=== PATIENT | male | born 1985 | race Caucasian/White ===

== ENCOUNTER 2022-05-24 13:26 | Emergency (ER) | payer OTHER, SELFPAY ==
[2022-05-24 13:34] VITALS: BP 128/85; PULSE 57; RESP 16; TEMP 36.7; O2SAT 100
--- NOTE | 2022-05-24 14:28 | ED.GENADUL_ITS ---
Discharge Plan Disposition Patient Disposition: HOME Condition: Improving Discharge Details Clinical Impression: Laceration of hand, left Primary Care Provider: Kati,Local ED Provider: Domenico Spence Home Meds and New Rx's Prescriptions: Continued propranolol 20 mg Tablet 20 mg PO DAILY Discharge Instructions Instructions: Laceration (ED) Additional Instructions: Return for fever, redness, or any other acute concerns. Sutures to be removed in 1 week Medical Decision Making 36-year-old male who lacerated his left hand on the dorsum with a boxing promoter knife at home. His tetanus is up-to-date. He was anesthetized, irrigated, cleansed and evaluated in a bloodless field without evidence of foreign body. The wound was repaired with 2 interrupted nylon sutures. He is stable and improved, appropriate for discharged home HPI General Mode of arrival: ambulatory . Date/Time Provider Initiated Documentation: 05/24/22 13:37 . Limitations to Documentation: no limitations . Information obtained by: patient . History of Present Illness 36 year old M presents to the emergency department with the chief complaint of Left hand laceration, described as mild, Quality is described as dull and constant, and is localized to the left and upper extremity. Patient reports no radiation. Patient started experiencing this minute(s) and it has been constant. No relieving factors improve symptom(s), No exacerbating factors reported . Patient notes no other symptoms.. Patient did receive the following treatments prior to arrival, none Related Data Home Medications Medication Instructions Recorded Confirmed propranolol 20 mg tablet 20 mg PO DAILY 05/24/22 05/24/22 Allergies Allergy/AdvReac Type Severity Reaction Status Date / Time No Known Allergies Allergy Unverified 05/24/22 13:36 General Stated Complaint: Laceration MARK: 4 Review of Systems Narrative: Tetanus up-to-date, no motor weakness or numbness PFSH All Active Problems (Updated 05/24/22 @ 14:32 by Domenico Spence MD) Laceration of hand, left (Acute) Social History Smoking/Tobacco Use Status: Never Smoking risk assessment performed?: Yes Alcohol Intake: current Alcohol Intake frequency: holidays/special occasions only Alcohol type: beer Drug use: Never Substance use type: does not use Do you feel safe at home: Yes Exam Narrative Exam Narrative: GEN: awake, alert, oriented 3. Pleasant, well groomed, interactive. EXT: Full ROM, no edema, no rash. Left hand dorsum with 1 cm puncture wound overlying the first metacarpal. Distal motor and sensory testing is unremarkable/within normal limits Neuro: Grossly normal neurologic exam, conversant, interactive. Psych: Speech fluent, thoughts congruent, affect normal Course Vital Signs Vital signs: Vital Signs Temperature 36.7 C 05/24/22 13:34 Pulse 57 L 05/24/22 13:34 Respiratory Rate 16 05/24/22 13:34 Blood Pressure 128/85 05/24/22 13:34 Pulse Oximetry 100 05/24/22 13:34 Temperature 36.7 C 05/24/22 13:34 Temperature Source Tympanic 05/24/22 13:34 Pulse 57 L 05/24/22 13:34 Respiratory Rate 16 05/24/22 13:34 Respiratory Effort Non-Labored 05/24/22 13:38 Blood Pressure 128/85 05/24/22 13:34 Blood Pressure Position Sitting 05/24/22 13:34 Pulse Oximetry 100 05/24/22 13:34 Oxygen Delivery Method Room Air 05/24/22 13:34 Oxygen Flow Rate 0 05/24/22 13:34 Pain Level 0 05/24/22 13:34 Procedures Laceration Laceration 1: Site: hand Side (If applicable): right Size (cm): 1.5 Description: linear Depth: simple, single layer Local Anesthetic: Lidocaine 1% Amount of anesthesia used (mL): 1.5 Pre-repair: wound explored and deep structures intact Skin layer closed with: nylon Size (cm): 4-0 Number of sutures: 2 Technique: simple, interrupted PAWSS Have you Been Recently Intoxicated or Drunk Within the Last 30 days?: No Have you Ever Experienced Previous Episodes of Alcohol Withdrawal?: No Have you ever Experienced Withdrawal Seizures?: No Have you ever Experienced Delirium Tremens(DT)s?: No Have you ever undergone Alcohol Rehabilitation Treatment (i.e, inpt ot outpatient treatment programs)?: No Have you ever Experienced Blackouts?: No Have you ever Combined Alcohol with other Downers within the last 90 days?: No Have you ever Combined Alcohol with any other Substance of Abuse during the last 90 days?: No Positive Blood Alcohol level on Presentation? [PCS.BAL]: No Evidence of Increased Autonomic Activity (i.e. HR>120, tremor, sweating, agitation, nausea)?: No Result: 0
== END 2022-05-24 14:25 | disposition home or self-care (01) ==
PROVIDERS: Emergency Provider Emergency Medicine
DX: S61.412A Laceration without foreign body of left hand, initial encounter (principal); W26.0XXA Contact with knife, initial encounter; Y92.009 Unspecified place in unspecified non-institutional (private) residence as the place of occurrence of the external cause
CPT/HCPCS: 12001; 99281; 99282

== ENCOUNTER 2023-03-08 02:43 | Outpatient (CLI) | payer OTHER, SELFPAY ==
--- NOTE | 2023-03-08 10:04 | DI.RAD_ITS ---
Exam(s) XR ARTHRITIS SERIES EXAM: XR ARTHRITIS SERIES CLINICAL HISTORY: B/L DIP pain, polyarthritis, M13.0. TECHNIQUE: 2D digital imaging was performed. Two views of both hands. COMPARISON: No exams were available for comparison FINDINGS: BONES: Bones are normally mineralized. No acute fracture is present. No bony destructive lesion is s een. JOINTS: No dislocation present. No joint space narrowing. SOFT TISSUE: Normal. IMPRESSION: Unremarkable radiographs of bilateral hands. DATA REPOSITORY: RADIATION DOSE DELIVERED:
--- NOTE | 2023-03-08 10:05 | DI.RAD_ITS ---
Exam(s) XR SHOULDER LT COMPLETE 2+V EXAM: XR SHOULDER LT COMPLETE 2+V CLINICAL HISTORY: Unprovoked deep pain, polyarthritis, M13.0. TECHNIQUE: 2D digital imaging was performed. Three views. COMPARISON: No exams were available for comparison FINDINGS: BONES: No acute fracture is present. No bony destructive lesion is seen. JOINTS: No dislocation present. No visible degenerative changes. SOFT TISSUE: Normal. IMPRESSION: Unremarkable radiographs of the left shoulder. DATA REPOSITORY: RADIATION DOSE DELIVERED:
== END 2023-03-08 03:03 ==
LOC: DI 02:43
PROVIDERS: PCP Family Medicine; Visit Provider Family Medicine
DX: M13.0 Polyarthritis, unspecified (principal)
CPT/HCPCS: 73030; 73120

== ENCOUNTER 2023-03-12 02:23 | Outpatient (CLI) | payer OTHER, SELFPAY ==
[2023-03-12 14:27] LABS: ALT 39 U/L (16-63); AST 24 U/L (15-37); Albumin 4.3 g/dL (3.4-5.0); Alkaline Phosphatase 56 U/L (46-116); BUN 16 mg/dL (7-18); Bilirubin, Total 0.7 mg/dL (0.2-1.0); Calcium 8.8 mg/dL (8.5-10.1); Chloride 104 mmol/L (98-107); Estimated GFR 100.66 (mL/min/1.73m2); Glucose 82 mg/dL (74-106); Potassium 4.4 mmol/L (3.5-5.1); Sodium 140 mmol/L (136-145); Total Protein 8.1 g/dL (6.4-8.2)
[2023-03-12 14:46] LABS: Calculated LDL 134 mg/dL (<100); Cholesterol 201 mg/dL (<200); HDL Cholesterol 61 mg/dL (40-60); Triglyceride 34 mg/dL (<150)
[2023-03-15 09:55] LABS: Cyclic Citrullinated Peptide <2.5 U/mL (<5.0)
== END 2023-03-12 02:24 | disposition home or self-care (01) ==
LOC: LBO 02:24
PROVIDERS: PCP Family Medicine; Visit Provider Family Medicine
DX: M13.0 Polyarthritis, unspecified (principal); I48.91 Unspecified atrial fibrillation
CPT/HCPCS: 36415; 80053; 80061; 86200

== ENCOUNTER 2023-06-03 16:22 | Outpatient (REF) | payer OTHER, SELFPAY ==
[2023-06-03 21:49] LABS: Abs Immature Grans 0.01 10^3/uL (0.0-0.06); Absolute Basophil Count 0.09 10^3/uL (0.0-0.2); Absolute Eosinophil Count 0.11 10^3/uL (0.0-0.7); Absolute Lymphocyte Count 1.69 10^3/uL (1.2-3.4); Absolute Monocyte Count 0.59 10^3/uL (0.1-0.8); Absolute Neutrophil Count 3.24 10^3/uL (1.2-6.7); Basophils % 1.6; Eosinophils % 1.9; HCT 45.6 % (40.0-50.0); HGB 15.5 g/dL (13.5-17.5); Immature Grans % 0.2; Lymphocytes % 29.5; MCH 30.5 pg (27.0-33.0); MCV 90 fL (80-95); MPV 10.9 fL (8.0-11.0); Monocytes % 10.3; Neutrophils % 56.5; Platelet Count 214 10^3/uL (130-400); RBC 5.08 10^6/uL (4.36-5.78); RDW 11.9 % (11.8-14.1); RDW-SD 38.7 fL; WBC 5.73 10^3/uL (4.4-10.8)
[2023-06-07 10:36] LABS: Lyme Ab w Rflx to Lyme Confirm Negative (Negative)
[2023-06-07 15:51] LABS: Measles (Rubeola), IgM Negative (Negative)
[2023-06-07 22:16] LABS: Anaplasma phagocytophilum Negative (Negative); B. miyamotoi PCR Negative (Negative); Babesia divergens/MO-1 Negative (Negative); Babesia duncani Negative (Negative); Babesia microti Negative (Negative); Ehrlichia chaffeensis Negative (Negative); Ehrlichia ewingii/canis Negative (Negative); Ehrlichia muris eauclairensis Negative (Negative)
== END 2023-06-03 16:23 | disposition home or self-care (01) ==
LOC: LBN 16:22
PROVIDERS: PCP Family Medicine; Visit Provider Physician Assistant
DX: R21 Rash and other nonspecific skin eruption (principal); R53.81 Other malaise; R51.9 Headache, unspecified; R53.83 Other fatigue
CPT/HCPCS: 86765; 87798; 85025; 86618

== ENCOUNTER 2023-12-22 05:06 | Outpatient (CLI) | payer OTHER, SELFPAY ==
[2023-12-22 16:14] LABS: ALT 37 U/L (16-63); AST 23 U/L (15-37); Albumin 4.4 g/dL (3.4-5.0); Alkaline Phosphatase 68 U/L (46-116); Bilirubin, Direct 0.2 mg/dL (0.0-0.2); Bilirubin, Total 0.7 mg/dL (0.2-1.0); Total Protein 8.6 g/dL (6.4-8.2)
== END 2023-12-22 05:07 | disposition home or self-care (01) ==
LOC: LBO 05:06
PROVIDERS: PCP Family Medicine; Referring Provider Family Medicine; Visit Provider Family Medicine
DX: B35.1 Tinea unguium (principal); Z79.899 Other long term (current) drug therapy
CPT/HCPCS: 36415; 80076

== ENCOUNTER 2024-01-20 08:15 | Outpatient (CLI) | payer OTHER, SELFPAY ==
[2024-01-20 16:17] LABS: ALT 31 U/L (16-63); AST 17 U/L (15-37); Albumin 3.9 g/dL (3.4-5.0); Alkaline Phosphatase 58 U/L (46-116); Bilirubin, Direct 0.1 mg/dL (0.0-0.2); Bilirubin, Total 0.4 mg/dL (0.2-1.0); Total Protein 7.7 g/dL (6.4-8.2)
== END 2024-01-20 08:16 | disposition home or self-care (01) ==
PROVIDERS: PCP Family Medicine; Visit Provider Family Medicine
DX: B35.1 Tinea unguium (principal)
CPT/HCPCS: 36415; 80076

== ENCOUNTER 2024-01-25 08:36 | Outpatient (CLI) | payer OTHER, SELFPAY ==
--- NOTE | 2024-01-25 08:30 | RT.EKG_ITS ---
APPROVED REPORT Exam: Resting ECG Reason for Exam: palpitations Patient Location: O HR:69 bpm ECG Measurements Heart Rate 69 AXIS SD 155 P 72 QRSd 102 QRS 62 QT 388 T 41 QTc 416 Conclusion Sinus rhythm...normal P axis, V-rate 50- 99 Baseline wander in lead(s) II,III,aVL,aVF Normal Electrocardiogram
== END 2024-01-25 08:37 | disposition home or self-care (01) ==
LOC: DI.CARD 08:37
PROVIDERS: PCP Family Medicine; Visit Provider Internal Medicine Cardiovascular Disease
DX: Z86.79 Personal history of other diseases of the circulatory system (principal); Z13.6 Encounter for screening for cardiovascular disorders
CPT/HCPCS: 93010

== ENCOUNTER → 2024-02-16 03:26 | Outpatient (CLI) | payer OTHER, SELFPAY ==
--- NOTE | 2024-02-16 13:15 | DI.MRI_ITS ---
Exam(s) MR UPPER JOINT LT WO EXAM: MR UPPER JOINT LT WO CLINICAL HISTORY: lt shoulder Pain, restriction of motion >9 months,m25.512. TECHNIQUE: Multiplanar multisequence MRI was performed. COMPARISON: Plain films 08 March 2023 FINDINGS: BONES: There is no fracture or contusion pattern. JOINTS:The acromioclavicular joint is normal. The glenohumeral joint is normal. TENDONS: Supraspinatus: Unremarkable. Infraspinatus: Unremarkable. Subscapularis: Unremarkable. Teres Minor: Unremarkable. Biceps and [place]: Unremarkable. MUSCLES: Unremarkable. GLENOID LABRUM: Unremarkable on this noncontrast examination. SOFT TISSUES: Unremarkable. OTHER: Subacromial and subdeltoid bursae and subcoracoid bursa show no fluid. . IMPRESSION: Unremarkable MRI of the shoulder. DATA REPOSITORY:
== END ==
PROVIDERS: PCP Family Medicine; Visit Provider Family Medicine
DX: M25.512 Pain in left shoulder (principal)
CPT/HCPCS: 73221

== ENCOUNTER 2024-10-29 11:55 | Emergency (ER) | payer OTHER, SELFPAY ==
[2024-10-29 11:58] VITALS: BP 137/86; PULSE 50; RESP 16; O2SAT 98
--- NOTE | 2024-10-29 12:15 | DI.CT_ITS ---
Exam(s) CT HEAD CERVICAL SPINE WO EXAM: CT HEAD CERVICAL SPINE WO CLINICAL HISTORY: Trauma. TECHNIQUE: Imaging Protocol: Axial computed tomography images with coronal and sagittal reformatted images were created and reviewed COMPARISON: CT CT CHEST/ABD/PEL W from 10/29/2024 FINDINGS: Head CT Ventricles and Extra axial spaces: Normal in size and morphology for the patient's age. Hemorrhage: None. Cerebral parenchyma: No evidence of mass or acute infarct. Midline shift: None. Brainstem/Cerebellum: Normal. Calvarium: Normal. Visualized Paranasal sinuses/Mastoids: Clear. Soft tissues: Unremarkable. Cervical Spine CT BONES: Vertebral body heights are maintained. Alignment is normal. There is no evidence of acute frac ture. Degenerative disc changes and facet degenerative changes are seen . SOFT TISSUES: No paraspinal hematoma. The airway appears intact. No pneumothorax is seen at the lung apices. IMPRESSION: Head CT: No acute abnormality. C-spine CT: No acute abnormality. RADIATION DOSE DELIVERED: Total DLP DATA REPOSITORY: All CT scans at this facility are submitted to the National Radiology Data Registry (NRDR) Dose Index Registry (DIR) with the [employer] (ACR). RADIATION OPTIMIZATION: All CT scans at this facility use at least one of these dose optimization te chniques: automated exposure control; mA and/or kV adjustment per patient size (includes targeted exa ms where dose is matched to clinical indication); or iterative reconstruction.
--- NOTE | 2024-10-29 12:15 | DI.CT_ITS ---
Exam(s) CT CHEST/ABD/PEL W CT THORACIC LUMBAR SPINE REC EXAM: CT CHEST/ABD/PEL W CLINICAL HISTORY: Trauma. TECHNIQUE: Imaging Protocol: Axial computed tomography images with coronal and sagittal reformatted images were created and reviewed. Computer aided detection (CAD) was utilized. CONTRAST MATERIAL: Intravenous: Omnipaque 350 Contrast volume:100 ml Oral: yes / no COMPARISON: CT CT THORACIC LUMBAR SPINE REC from 10/29/2024 FINDINGS: CHEST: Tracheobronchial tree: Patent. Pulmonary parenchyma: No consolidation or dominant measurable mass. Pleura: No effusion or pneumothorax. Mediastinum: Within normal limits. Aorta: Thoracic portion non-dilated. Pulmonary arteries: No visible emboli. Heart: No pericardial effusion. Bones: Unremarkable for age. No lytic or blastic lesions.No compression fractures. No visible disp laced rib fractures. Soft tissues: Mild bilateral gynecomastia. ABDOMEN and PELVIS: Liver: Normal density. No measurable mass. Gallbladder and biliary tract: No evidence of stones or wall thickening. No biliary dilatation. Pancreas: Normal density, no abnormal calcifications or inflammatory process. Spleen: Normal. Kidneys: Normal size, contour and axis. No radiodense stones. No obstructive uropathy. No suspicious masses seen. Adrenal glands: No masses seen. Aorta: Abdominal portion non-dilated. Lymph nodes: Within normal limits. Soft tissues: Unremarkable. Bladder: Unremarkable. Bowel: No obstruction or bowel wall thickening. Peritoneal cavity: No ascites. No focal collection. No mesenteric inflammatory response. No free ai r. Bones: No evidence of thoracic spine or pelvic fracture. The SI joints or pubic and pubic symphysis are unremarkable. Reproductive organs: Within normal limits. IMPRESSION: No acute abnormality in the chest, abdomen or pelvis. No acute abnormality in the thoracic or lumbar spine. RADIATION DOSE DELIVERED: Total DLP DATA REPOSITORY: All CT scans at this facility are submitted to the National Radiology Data Registry (NRDR) Dose Index Registry (DIR) with the [employer] (ACR). RADIATION OPTIMIZATION: All CT scans at this facility use at least one of these dose optimization te chniques: automated exposure control; mA and/or kV adjustment per patient size (includes targeted exa ms where dose is matched to clinical indication); or iterative reconstruction.
--- NOTE | 2024-10-29 12:22 | ED.GENADUL_ITS ---
Discharge Plan Disposition Patient Disposition: Home Discharge Details Clinical Impression: Fall down stairs, Right foot sprain Primary Care Provider: Axel Reaves ED Provider: Darby Mcdonough Home Meds and New Rx's Prescriptions: No Action propranolol 20 mg tablet 20 mg PO DAILY PRN diltiazem HCl 120 mg capsule,extended release 12 hr 120 mg PO BID Qty: 180 1RF apixaban 5 mg tablet 5 mg PO BID Discharge Instructions Instructions: Foot Sprain (DC) Additional Instructions: You were seen in the emergency department after a fall down some stairs, had a full trauma CT scan that did not show any broken bones or other severe injuries, though you are likely experiencing a sprain in your foot. We did discuss treatments for this, and we have decided to trial a lace up brace for stability and support. Please continue to use Tylenol and ibuprofen as needed for management of pain, and ice and elevation for swelling. Please follow-up with your primary care provider in the next few days to discuss this visit and any symptoms that change, worsen, or persist. Thank you for allowing us to be part of your care. HPI General Mode of arrival: ambulatory . Date/Time Provider Initiated Documentation: 10/29/24 12:01 . Limitations to Documentation: no limitations . Information obtained by: patient, RN notes reviewed and old records reviewed . HPI Narrative: 38-year-old male presents to the ER after a mechanical fall down some stairs on Wednesday night. He reports that he missed a step and tumbled landing on his folded right leg. He is complaining of lower right back pain, some upper mid C- spine tenderness, right hip pain and right foot pain. He denies any loss of consciousness headache blurry vision chest pain or abdominal pain. He does report that he was recently on Eliquis and had stopped taking the Eliquis 24 hours prior to this fall. Denies any blood in his stool or vomiting. He has been taking ibuprofen which he took around 8:00 this morning. He is ambulatory upon arrival. Alert and oriented x 4. Related Data Home Medications ?Medication ?Instructions ?Recorded ?Confirmed propranolol 20 mg tablet 20 mg PO DAILY PRN 01/25/24 10/29/24 apixaban 5 mg tablet 5 mg PO BID 09/25/24 10/29/24 diltiazem HCl 120 mg 120 mg PO BID #180 caps 09/26/24 10/29/24 capsule,extended release 12 hr Previous Rx's ?Medication ?Instructions ?Recorded diltiazem HCl 120 mg 120 mg PO BID #180 caps 09/26/24 capsule,extended release 12 hr Allergies Allergy/AdvReac Type Severity Reaction Status Date / Time amiodarone Allergy Mild rash Verified 10/29/24 12:02 General Stated Complaint: Fall/Non TraumaCriteria MARK: 3 Review of Systems All systems reviewed & are unremarkable except as noted in HPI and below Musculoskeletal Musculoskeletal: Reports as per HPI, Reports back pain and Reports arthralgias Exam Narrative Exam Narrative: General: Well Developed, Awake and Alert, conversant. Skin: Warm and Dry HEENT: Head: No palpable deformities, Normocephalic Eyes: Pupils PERRLA, EOM's intact. No periorbital eccymosis or step off Ears: Canal patent. Tympanic membranes are clear . No tierney's sign, no hemptympanum. Nose/Face: Atraumatic. Facial bones nontender to palpation and stable with manipulation. Mouth/Throat: No intraoral trauma. Teeth and mandible are intact. Neck: No midline tenderness, no step off, no deformity to palpation of C-spine. Trachea midline. Chest: No surface trauma. Nontender without crepitus or deformity. Lungs clear to ausculatation bilaterally. Heart: RRR, no rubs, murmurs or gallop. Abdomen: No abrasions, ecchymosis, or surface trauma. Nondistended. Nontender to palpation no guarding, rebound, or rigidity. Pelvis: Nontender to palpation and stable to compression. Femoral pulses strong and equal Extremities: no surface trauma. Sensation intact. Peripheral pulses intact and equal. Neuro: ANO x4, GCS 15, cranial nerves II through XII intact. Motor and sensory exam nonfocal. Reflexes are symmetric. Course Vital Signs Vital signs: Vital Signs Pulse 50 L 10/29/24 11:58 Respiratory Rate 16 10/29/24 11:58 Blood Pressure 137/86 10/29/24 11:58 Pulse Oximetry 98 10/29/24 11:58 Pulse 50 L 10/29/24 11:58 Respiratory Rate 16 10/29/24 11:58 Blood Pressure 137/86 10/29/24 11:58 Blood Pressure Position Sitting 10/29/24 11:58 Pulse Oximetry 98 10/29/24 11:58 Oxygen Delivery Method Room Air 10/29/24 11:58 Oxygen Flow Rate 0 10/29/24 11:58 Pain Level 5 10/29/24 11:58 Medical Decision Making 38-year-old male presents to the ER after a mechanical fall down some stairs on Wednesday night. He reports that he missed a step and tumbled landing on his folded right leg. He is complaining of lower right back pain, some upper mid C- spine tenderness, right hip pain and right foot pain. He denies any loss of consciousness headache blurry vision chest pain or abdominal pain. He does report that he was recently on Eliquis and had stopped taking the Eliquis 24 hours prior to this fall. Denies any blood in his stool or vomiting. He has been taking ibuprofen which he took around 8:00 this morning. He is ambulatory upon arrival. Alert and oriented x 4. I did order a trauma workup including a becker scan including head CT C-spine with recons chest abdomen pelvis and a foot x-ray. Due to the recent Eliquis medication for recent diagnosis of a-fibrillation. CTs including head CT C-spine with T and L spine recons to chest abdomen all within normal limits please see preliminary results. Labs are also largely within normal limits. Patient was discharged by my colleague while I was indisposed during a procedure. Patient remained hemodynamically stable alert and oriented, ambulatory and requesting to leave throughout the entire stay. This text was generated using [employer] dictation system, please disregard any oddities of phrase or misspellings. Lab Data Lab results reviewed: Yes I reviewed the patient's lab results. Labs: Laboratory Tests Range/Units 10/29/24 12:32 WBC (4.4-10.8) 10^3/uL 5.15 RBC (4.36-5.78) 10^6/uL 4.86 Hgb (13.5-17.5) g/dL 15.1 Hct (40.0-50.0) % 44.4 MCV (80-95) fL 91 MCH (27.0-33.0) pg 31.1 MCHC (32.0-36.0) % 34.0 RDW (11.8-14.1) % 12.0 Plt Count (130-400) 10^3/uL 198 MPV (8.0-11.0) fL 10.4 Immature Gran % % 0.0 Neutrophils % % 49.8 Lymphocytes % % 35.0 Monocytes % % 10.7 Eosinophils % % 2.9 Basophils % % 1.6 Nucleated RBC % (0.0-0.3) % 0.0 Absolute Neutrophils (1.2-6.7) 10^3/uL 2.57 Absolute Lymphocytes (1.2-3.4) 10^3/uL 1.80 Absolute Monocytes (0.1-0.8) 10^3/uL 0.55 Absolute Eosinophils (0.0-0.7) 10^3/uL 0.15 Absolute Basophils (0.0-0.2) 10^3/uL 0.08 PT (9.1-11.1) sec 11.0 INR (0.9-1.1) 1.1 APTT (20.6-30.2) sec 25.4 Sodium (136-145) mmol/L 143 Potassium (3.5-5.1) mmol/L 4.0 Chloride (98-107) mmol/L 103 Carbon Dioxide (21.0-32.0) mmol/L 30.4 Anion Gap (3-11) mmol/L 9.6 BUN (7-18) mg/dL 20 H Creatinine (0.70-1.30) mg/dL 1.1 Est GFR (CKD-EPI 2020) (mL/min/1.73m2) 89.22 Glucose (74-106) mg/dL 115 H Calcium (8.5-10.1) mg/dL 9.0 Total Bilirubin (0.2-1.0) mg/dL 0.37 AST (15-37) U/L 16 ALT (16-63) U/L 30 Alkaline Phosphatase (46-116) U/L 56 Total Protein (6.4-8.2) g/dL 7.6 Albumin (3.4-5.0) g/dL 3.9 Quality:SDOH Health Related Social Needs: No Data to Display PFSH All Active Problems (Updated 10/29/24 @ 13:47 by Suzie Russ MD) Right foot sprain (Acute) Fall down stairs (Acute) ADHD (Acute) Hyperlipidemia (Acute) Left shoulder pain (Acute) Ringworm of body (Acute) Onychomycosis (Acute) Acne rosacea (Acute) Essential tremor (Acute) Family history of colorectal cancer (Chronic) Grandfather, at age 50 Polyarthritis (Acute) Medical History History of atrial fibrillation Social History Smoking/Tobacco Use Status: Former Tobacco Use Tobacco: How many years used: 4 Second Hand Exposure: No Smoking risk assessment performed?: Yes Alcohol Intake: current Alcohol Intake frequency: holidays/special occasions only Alcohol type: beer Drug use: Never Substance use type: does not use Adopted: Yes Caregiver/Support person: No Foster care: No Household members: spouse Housing: house Number of Children: 0 number of grandchildren: 0 Communication Needs: None Education Level: college Details: Bachelor's Degree Do you need help understanding health information?: Never current occupation: RN Pets and animals: Yes (Chickens - 9) Pets and animals: farm animals Sexually active: Yes Do you think of yourself as: straight/heterosexual Current gender identity: male What is your relationship status?: How often do you talk on the phone with friends or family?: twice per week How often do you get together with friends or relatives?: never Do you belong to any clubs or organized social groups?: no Panel score (0-1 are the most socially isolated patients): 1 What type of physical activity do you participate in: other Details: Outdoor work; hiking Duration: > 90 minutes/day Frequency: 3-4 times per week Kayleigh/Confucianist: None Special kayleigh needs: No Seatbelt use: always Helmet use: No (Sometimes) Drive intox or ride w/intox hazmat cdl driver: No Do you feel safe at home: Yes
--- NOTE | 2024-10-29 12:23 | DI.RAD_ITS ---
Exam(s) XR FOOT RT COMPLETE EXAM: XR FOOT RT COMPLETE CLINICAL HISTORY: Fall. TECHNIQUE: 2D digital imaging was performed. Three views. COMPARISON: No exams were available for comparison FINDINGS: BONES: No acute fracture is present. No bony destructive lesion is seen. JOINTS: No dislocation present. SOFT TISSUE: Normal. IMPRESSION: Unremarkable radiographs of the right foot. DATA REPOSITORY: RADIATION DOSE DELIVERED:
[2024-10-29 12:39] LABS: Absolute Basophil Count 0.08 10^3/uL (0.0-0.2); Absolute Eosinophil Count 0.15 10^3/uL (0.0-0.7); Absolute Monocyte Count 0.55 10^3/uL (0.1-0.8); Absolute Neutrophil Count 2.57 10^3/uL (1.2-6.7); Basophils % 1.6 %; Eosinophils % 2.9 %; HCT 44.4 % (40.0-50.0); HGB 15.1 g/dL (13.5-17.5); MCH 31.1 pg (27.0-33.0); MCV 91 fL (80-95); MPV 10.4 fL (8.0-11.0); Monocytes % 10.7 %; Neutrophils % 49.8 %; Platelet Count 198 10^3/uL (130-400); RBC 4.86 10^6/uL (4.36-5.78); RDW-SD 40.4 fL; WBC 5.15 10^3/uL (4.4-10.8)
[2024-10-29 12:53] LABS: INR 1.1 (0.9-1.1); PTT Activated 25.4 sec (20.6-30.2)
[2024-10-29 12:55] LABS: ALT 30 U/L (16-63); AST 16 U/L (15-37); Albumin 3.9 g/dL (3.4-5.0); Alkaline Phosphatase 56 U/L (46-116); Anion Gap 9.6 mmol/L (3-11); BUN 20 mg/dL (7-18); Bilirubin, Total 0.37 mg/dL (0.2-1.0); CO2 30.4 mmol/L (21.0-32.0); CREATININE 1.1 mg/dL (0.70-1.30); Chloride 103 mmol/L (98-107); Estimated GFR 89.22 (mL/min/1.73m2); Glucose 115 mg/dL (74-106); Sodium 143 mmol/L (136-145); Total Protein 7.6 g/dL (6.4-8.2)
[2024-10-29] MEDS: Omnipaque 350 MG/ML 100 ML BTL IJ (13:03)
[2024-10-29] MEDS: Normal Saline - Diluent 50 ML VIAL IJ (13:03)
--- NOTE | 2024-10-29 13:13 | DI.VRAD_ITS ---
PROCEDURE INFORMATION: Exam: XR Right Foot Exam date and time: 10/29/2024 1:00 PM Age: 38 years old Clinical indication: Pain; Foot; Right TECHNIQUE: Imaging protocol: Radiologic exam of the right foot. Views: 3 or more views. COMPARISON: No relevant prior studies available. FINDINGS: Bones/joints: There is no evidence of acute fracture.There is no evidence of malalignment or dislocation. Soft tissues: Normal. IMPRESSION: There is no evidence of acute fracture.There is no evidence of malalignment or dislocation. Dictated and Authenticated by: Garry Chilel MD. Orderin Sharonda Pastor MD
--- NOTE | 2024-10-29 13:19 | DI.VRAD_ITS ---
Addendum created by Jose E Bautista MD on 10/29/2024 1:55:19 PM EST: Correction: The brain CT was done prior to the injection of contrast. No hemorrhage seen. Initial report created on 10/29/2024 1:18:27 PM EST: PROCEDURE INFORMATION: Exam: CT Head Without Contrast Exam date and time: 10/29/2024 12:43 PM Age: 38 years old Clinical indication: Injury or trauma; Other: Fall/injury TECHNIQUE: Imaging protocol: Computed tomography of the head without contrast. COMPARISON: No relevant prior studies available. FINDINGS: Limitations: Examination was performed after injection of IV contrast for CT chest abdomen and pelvis. Postcontrast appearance may obscure small areas of hemorrhage. Brain: No midline shift. No mass, acute infarct, hemorrhage, or extra-axial fluid collection. Cerebral ventricles: No ventriculomegaly. Paranasal sinuses: Visualized sinuses are unremarkable. No fluid levels. Mastoid air cells: Visualized mastoid air cells are well aerated. Bones: Unremarkable. No acute fracture. Soft tissues: Unremarkable. IMPRESSION: 1. Examination was performed after injection of IV contrast for CT chest abdomen and pelvis. Postcontrast appearance may obscure small areas of hemorrhage. 2. No acute intracranial abnormality. PROCEDURE INFORMATION: Exam: CT Cervical Spine Without Contrast Exam date and time: 10/29/2024 12:43 PM Age: 38 years old Clinical indication: Injury or trauma; Other: Fall/injury TECHNIQUE: Imaging protocol: Computed tomography of the cervical spine without contrast. COMPARISON: MR UPPER JOINT LT WO 02/16/2024 12:44 PM FINDINGS: Bones: No acute fracture. Normal alignment. No significant disc bulge or herniation. No severe spinal canal stenosis. No significant neural foraminal narrowing. Lungs: Lung apices are normal. Soft tissues: Unremarkable. IMPRESSION: No acute findings. Dictated and Authenticated by: Jose E Bautista MD. Orderin Sharonda Pastor MD
--- NOTE | 2024-10-29 13:40 | DI.VRAD_ITS ---
PROCEDURE INFORMATION: Exam: CT Thoracic Spine With Contrast Exam date and time: 10/29/2024 12:47 PM Age: 38 years old Clinical indication: Low back pain; Pain in thoracic spine TECHNIQUE: Imaging protocol: Computed tomography of the thoracic spine with contrast. COMPARISON: CT CHEST/ABD/PEL W 10/29/2024 12:47 PM FINDINGS: Bones/joints: There is no evidence of acute fracture.There is no evidence of malalignment or dislocation. Soft tissues: Unremarkable. IMPRESSION: There is no evidence of acute fracture.There is no evidence of malalignment or dislocation. PROCEDURE INFORMATION: Exam: CT Lumbar Spine With Contrast Exam date and time: 10/29/2024 12:47 PM Age: 38 years old Clinical indication: Low back pain; Pain in thoracic spine TECHNIQUE: Imaging protocol: Computed tomography of the lumbar spine with contrast. COMPARISON: CT CHEST/ABD/PEL W 10/29/2024 12:47 PM FINDINGS: Bones/joints: There is no evidence of acute fracture.There is no evidence of malalignment or dislocation. Mild broad-based disc bulge at L4/L5 and L5/S1 consistent with degenerative disc disease. Soft tissues: Unremarkable. IMPRESSION: 1. There is no evidence of acute fracture.There is no evidence of malalignment or dislocation. 2. Mild broad-based disc bulge at L4/L5 and L5/S1 consistent with degenerative disc disease. Dictated and Authenticated by: Garry Chilel MD. Orderin Sharonda Pastor MD
--- NOTE | 2024-10-29 13:42 | DI.VRAD_ITS ---
PROCEDURE INFORMATION: Exam: CT Chest With Contrast; Diagnostic Exam date and time: 10/29/2024 12:47 PM Age: 38 years old Clinical indication: Other: Trauma TECHNIQUE: Imaging protocol: Diagnostic computed tomography of the chest with contrast. Contrast material: OMNIPAQUE 350; Contrast volume: 100 ml; Contrast route: INTRAVENOUS (IV); COMPARISON: CT THORACIC LUMBAR SPINE REC 10/29/2024 12:47 PM FINDINGS: Lungs: Unremarkable. No consolidation. No masses. Pleural spaces: Unremarkable. No pneumothorax. No pleural effusion. Heart: Unremarkable. No cardiomegaly. No pericardial effusion. Lymph nodes: Unremarkable. No enlarged lymph nodes. Vasculature: Unremarkable. No aortic aneurysm. Bones/joints: Unremarkable. No acute fracture. Soft tissues: Unremarkable. IMPRESSION: No acute findings. PROCEDURE INFORMATION: Exam: CT Abdomen And Pelvis With Contrast Exam date and time: 10/29/2024 12:47 PM Age: 38 years old Clinical indication: Other: Trauma TECHNIQUE: Imaging protocol: Computed tomography of the abdomen and pelvis with contrast. Contrast material: OMNIPAQUE 350; Contrast volume: 100 ml; Contrast route: INTRAVENOUS (IV); COMPARISON: CT THORACIC LUMBAR SPINE REC 10/29/2024 12:47 PM FINDINGS: Liver: Normal. No mass. Gallbladder and biliary ducts: Normal. No calcified stones. No ductal dilation. Pancreas: Normal. No ductal dilation. Spleen: Normal. No splenomegaly. Adrenal glands: Normal. No mass. Kidneys and ureters: Normal. No hydronephrosis. Stomach and bowel: Unremarkable. No obstruction. No mucosal thickening. Appendix: No evidence of appendicitis. Intraperitoneal space: Unremarkable. No free air. No significant fluid collection. Vasculature: Unremarkable. No abdominal aortic aneurysm. Lymph nodes: Unremarkable. No enlarged lymph nodes. Urinary bladder: Unremarkable as visualized. Reproductive: Unremarkable as visualized. Bones/joints: Unremarkable. No acute fracture. Soft tissues: Unremarkable. IMPRESSION: No acute findings. Dictated and Authenticated by: Garry Chilel MD. Orderin Sharonda Pastor MD
== END 2024-10-29 14:08 | disposition home or self-care (01) ==
PROVIDERS: Emergency Provider Registered Nurse Emergency; PCP Family Medicine
DX: S93.601A Unspecified sprain of right foot, initial encounter (principal); W10.8XXA Fall (on) (from) other stairs and steps, initial encounter; Z79.01 Long term (current) use of anticoagulants
CPT/HCPCS: 29515; 74177; 80053; 99284; 70450; 71260; 72125; 73630; 85025; 85610; 85730; J3490